=== PATIENT | male | born 1965 | race Caucasian/White ===

== ENCOUNTER 2023-06-16 14:58 | Emergency (ER) | payer OTHER, MEDICAID, SELFPAY ==
[2023-06-16 15:02] VITALS: BP 132/77; PULSE 95; RESP 18; TEMP 35.8; O2SAT 98; BMI 25.8
--- NOTE | 2023-06-16 15:24 | DI.RAD.S_ITS ---
PROCEDURE: XR KNEE LT 1TO2V INDICATIONS: laceration over L knee TECHNIQUE: 2 views of the knee were acquired. COMPARISON: None. FINDINGS: Bones: No fractures or dislocations. No suspicious bony lesions. Soft tissues: No joint effusion. No suspicious soft tissue calcifications. No radiopaque foreign body. IMPRESSION: No visualized acute fracture or dislocation. However, if clinical concern and/or pain persist, short interval imaging followup in 7-10 days is recommended, as occult injury cannot be definitively excluded. Dictated by: Alejandrina Reeves M.D. on 06/16/2023 at 15:48 Approved by: Alejandrina Reeves M.D. on 06/16/2023 at 15:48
[2023-06-16] MEDS: LIDOCAINE 1% (PF) 5 ML INJ (15:51)
--- NOTE | 2023-06-16 16:47 | ED.LOWEXIN ---
HPI - Extremity Injury (Lower) <Italia Clark PA-C - Last Filed: 06/16/23 16:55> General Chief Complaint: Extremity Injury, Lower Stated Complaint: chainsaw hit L knee Time Seen by Provider: 06/16/23 15:14 Source: patient Mode of arrival: Ambulatory History of Present Illness HPI Narrative: 57-year-old male here for laceration to his left knee. He was just about to start using his chain saw and it nicked him in the anterior knee. His tetanus has been updated within the last 5 years. He has no difficulty ambulating. He has no pain in the knee itself, just the laceration. He cleaned it and applied a bandage and the bleeding appears to be well-controlled. Related Data Allergies Allergy/AdvReac Type Severity Reaction Status Date / Time No Known Drug Allergies Allergy Verified 06/16/23 15:02 Review of Systems <DARIAN Chapin Last Filed: 06/16/23 16:55> Review of Systems ROS Unobtainable: All systems reviewed & are unremarkable except as noted in HPI and below Patient History <Italia Clark PA-C - Last Filed: 06/16/23 16:55> Social History Smoking Status: Never smoker Smoking Status: Never smoker alcohol intake frequency: holidays/special occasions only Substance Use Type: does not use Exam <DARIAN Chapin Last Filed: 06/16/23 16:55> Narrative Exam Narrative: GENERAL: Well-developed, well-nourished, appears stated age. In no acute distress HEAD: Atraumatic. Normocephalic. EYES: Pupils equal round and reactive. Extraocular motions intact. No scleral icterus. No injection or drainage. ENT: Nose without bleeding, purulent drainage. Airway patent. NECK: Trachea midline. Non tender RESPIRATORY: Respiratory rate and effort normal EXTREMITIES: No edema or joint tenderness. NEURO: AOx3. SKIN: 5 cm subcutaneous linear laceration to the anterior left knee. No evidence of bony involvement on inspection. No foreign body noted Initial Vital Signs Initial Vital Signs: Vital Signs Temperature 96.5 F L 06/16/23 15:02 Pulse Rate 95 H 06/16/23 15:02 Respiratory Rate 18 06/16/23 15:02 Blood Pressure 132/77 06/16/23 15:02 Pulse Oximetry 98 03/17/24 15:02 Oxygen Delivery Method Room Air 06/16/23 15:02 <Rachna Finch MD - Last Filed: 06/22/23 07:04> Initial Vital Signs Initial Vital Signs: Vital Signs Temperature 96.5 F L 06/16/23 15:02 Pulse Rate 95 H 06/16/23 15:02 Respiratory Rate 18 06/16/23 15:02 Blood Pressure 132/77 06/16/23 15:02 Pulse Oximetry 98 06/16/23 15:02 Oxygen Delivery Method Room Air 06/16/23 15:02 Procedures <Italia Clark PA-C - Last Filed: 06/16/23 16:55> Laceration Repair Laceration 1: Time of procedure: 16:30 Site: lower extremity (Left anterior knee) Size (cm): 5 Description: linear Depth: simple, single layer (Through subcutaneous layer) Local Anesthetic: lidocaine 1% and with epi Amount of anesthesia used (mL): 3 Pre-repair: wound explored, irrigated extensively and deep structures intact Skin layer closed with: nylon Skin layer suture size: 4-0 Number of sutures: 5 Technique: simple, interrupted Course <Italia Clark PA-C - Last Filed: 06/16/23 16:55> Orders Ordered: Discontinued Medications Lidocaine HCl (Lidocaine 1% (Pf) 5 Ml) 5 ml INJ NOW ONE Stop: 06/16/23 15:48 Last Admin: 06/16/23 15:51 Dose: 5 ml Documented By: JUAN Vital Signs Vital signs: Vital Signs - 8 hr 06/16/23 15:02 Temperature 96.5 F L Pulse Rate 95 H Respiratory Rate 18 Blood Pressure 132/77 Pulse Oximetry 98 Oxygen Delivery Method Room Air <Rachna Finch MD - Last Filed: 06/22/23 07:04> Orders Ordered: Discontinued Medications Lidocaine HCl (Lidocaine 1% (Pf) 5 Ml) 5 ml INJ NOW ONE Stop: 06/16/23 15:48 Last Admin: 06/16/23 15:51 Dose: 5 ml Documented By: JUAN Vital Signs Vital signs: Vital Signs - 8 hr 06/16/23 15:02 Temperature 96.5 F L Pulse Rate 95 H Respiratory Rate 18 Blood Pressure 132/77 Pulse Oximetry 98 Oxygen Delivery Method Room Air MDM - Extremity Injury (Lower) <Italia Clark PA-C - Last Filed: 06/16/23 16:55> Imaging Data Extremity x-ray #1: Radiologist's Impression: [address] [address] XRay Report Signed Patient: Abhijit Mcclelland MR#: [id number] : 1965 Acct:[id number] Age/Sex: 57 / M Date of Service: 06/16/23 Loc: ED Accession Number: [id number] Procedure: XR knee LT 1to2V Ordering Provider: Italia Clark P.A-C PROCEDURE: XR KNEE LT 1TO2V INDICATIONS: laceration over L knee TECHNIQUE: 2 views of the knee were acquired. COMPARISON: None. FINDINGS: Bones: No fractures or dislocations. No suspicious bony lesions. Soft tissues: No joint effusion. No suspicious soft tissue calcifications. No radiopaque foreign body. IMPRESSION: No visualized acute fracture or dislocation. However, if clinical concern and/or pain persist, short interval imaging followup in 7-10 days is recommended, as occult injury cannot be definitively excluded. Dictated by: Alejandrina Reeves M.D. on 06/16/2023 at 15:48 Approved by: Alejandrina Reeves M.D. on 06/16/2023 at 15:48 [facility] Narrative Medical decision making narrative: Patient seen for laceration on his anterior left knee. Due to the location over his knee which does not have a lot of subcutaneous fat, an x-ray was performed to ensure the laceration did not affect his patella or other bony structures. the x-ray was negative. The wound otherwise is simple, linear, 5 cm in length and was easily repaired with 5 nylon sutures. Patient tolerated procedure very well Patient given wound care instructions including when to follow up for suture removal. Stable for discharge at this time. Discharge Plan Departure Patient Disposition: Home Clinical Impression: Laceration of lower extremity Qualifiers: Encounter type: initial encounter Laterality: left Qualified Code(s): S81.812A - Laceration without foreign body, left lower leg, initial encounter Instructions: DI for Laceration Repair Activity Restrictions/Additional Instructions: Thank you for choosing us to care for you today. You were seen and treated for a laceration on your left knee. The x-ray showed that the laceration did not affect the bones of your knee. Five stitches were placed in your knee. These will need to be removed in 8-10 days. In the meantime please clean wound with soap and water gently twice daily starting tomorrow morning. Please apply a bandage over the area so your clothing does not rub or pull against the stitches. Due to the location on the front of your knee, please be very cautious when bending your knee and please do not bend your knee fully. Look out for signs of infection including redness, swelling, drainage from the wound, and severe pain. If these occur please return to the emergency department for evaluation. Stand Alone Forms: Patient Portal/API ED Sign-out <Rachna Finch MD - Last Filed: 06/22/23 07:04> Cosign ED Attending Cosrobynature Attestation: I did not see this patient. I was available all times for consultation.
[2023-06-16 16:58] VITALS: BP 118/70; PULSE 77; RESP 14; O2SAT 99
== END 2023-06-16 17:00 | disposition home or self-care (01) ==
PROVIDERS: Emergency Provider Physician Assistant
DX: S81.012A Laceration without foreign body, left knee, initial encounter (principal); W29.3XXA Contact with powered garden and outdoor hand tools and machinery, initial encounter
CPT/HCPCS: 12002; 73560; 99283

== ENCOUNTER 2024-06-17 14:18 | Emergency (ER) | payer OTHER, SELFPAY ==
[2024-06-17 14:27] VITALS: BP 126/68; PULSE 87; RESP 18; TEMP 37.1; O2SAT 99; BMI 25.1
--- NOTE | 2024-06-17 14:33 | DI.RAD.S_ITS ---
PROCEDURE: XR FINGER RT MIN 2V INDICATIONS: cut across top of thumb while working with metal TECHNIQUE: AP hand, 2 views of the 1st finger(s) acquired. COMPARISON: None. FINDINGS: Bones: No fractures or dislocations. No suspicious bony lesions. Soft tissues: No suspicious soft tissue calcifications. IMPRESSION: No acute left thumb fracture or dislocation. No radiopaque foreign body is seen. Dictated by: Edwin Small M.D. on 06/17/2024 at 14:59 Approved by: Edwin Small M.D. on 06/17/2024 at 15:01
[2024-06-17] MEDS: LIDOCAINE 1% 20 ML 6 ML INJ (14:59)
--- NOTE | 2024-06-17 15:09 | ED.WOUNDLAC ---
HPI - Wound/Laceration <Lori Cueto PA-C - Last Filed: 06/17/24 16:57> General Chief Complaint: Wound/Laceration Stated Complaint: Per patient needs stiches right hand Time Seen by Provider: 06/17/24 14:31 Source: patient Mode of arrival: Ambulatory History of Present Illness HPI narrative: Mr. Mcclelland is a pleasant 58-year-old male, right-hand dominant, who presents to the emergency department for right hand laceration that occurred prior to arrival. 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 He has a linear 3 cm laceration overlying the dorsal aspect of the right MCP, no involvement of the nail. Reports that his tetanus shot is up-to-date within the last 5 years. He still has full range of motion of the thumb and bleeding is controlled on exam with a butterfly Band-Aid. He denies any other injuries. He does not take blood thinners. Related Data Allergies Allergy/AdvReac Type Severity Reaction Status Date / Time No Known Drug Allergies Allergy Verified 06/16/23 15:02 Review of Systems <Lori Cueto PA-C - Last Filed: 06/17/24 16:57> Review of Systems ROS Unobtainable: All systems reviewed & are unremarkable except as noted in HPI and below Patient History <Lori Cueto PA-C - Last Filed: 06/17/24 16:57> Social History Smoking Status: Never smoker Smoking Status: Never smoker alcohol intake frequency: holidays/special occasions only Exam <DARIAN Preciado Last Filed: 06/17/24 16:57> Narrative Exam Narrative: GENERAL: 58 year old patient appears stated age. Well-developed patient, in no acute distress. HEAD: Atraumatic. Normocephalic. NECK: Trachea midline. Cervical ROM intact. EXTREMITIES: 3cm linear superficial laceration overlying the dorslal aspect of the 1st MCP. No active bleeding. Full flexion and extension of the MCP and D IP. Brisk capillary refill in the finger and sensation intact to light touch. Strong radial pulses bilaterally. NEURO: AOx3. ?Clear speech. ?Moves all 4 extremities appropriately. SKIN: No rash or erythema of visible areas, laceration on R hand described above. Initial Vital Signs Initial Vital Signs: Vital Signs Temperature 98.8 F 06/17/24 14:27 Pulse Rate 87 06/17/24 14:27 Respiratory Rate 18 06/17/24 14:27 Blood Pressure 126/68 06/17/24 14:27 Pulse Oximetry 99 06/17/24 14:27 Oxygen Delivery Method Room Air 06/17/24 14:27 <Zachary Kumar MD - Last Filed: 06/19/24 19:39> Initial Vital Signs Initial Vital Signs: Vital Signs Temperature 98.8 F 06/17/24 14:27 Pulse Rate 87 06/17/24 14:27 Respiratory Rate 18 06/17/24 14:27 Blood Pressure 126/68 06/17/24 14:27 Pulse Oximetry 99 06/17/24 14:27 Oxygen Delivery Method Room Air 06/17/24 14:27 Procedures <Lori Cueto PA-C - Last Filed: 06/17/24 16:57> Laceration Repair Laceration 1: Time of procedure: 15:45 Site: hand (right thumb dorsal overlying MCP) Size (cm): 3 Description: linear Depth: simple, single layer Local Anesthetic: lidocaine 1% Amount of anesthesia used (mL): 3 Pre-repair: wound explored and irrigated extensively (cleansed with betadine) Skin layer closed with: nylon Skin layer suture size: 5-0 Number of sutures: 6 Technique: simple, interrupted Course <Lori Cueto PA-C - Last Filed: 06/17/24 16:57> Orders Ordered: Discontinued Medications Bacitracin (Bacitracin Oint 0.9 Gm Pckt) 1 applic TOP NOW ONE Stop: 06/17/24 15:54 Last Admin: 06/17/24 16:07 Dose: 1 applic Documented By: FERNANDO Lidocaine HCl (Lidocaine 1% 20 Ml) 6 ml INJ NOW ONE Stop: 06/17/24 14:36 Last Admin: 06/17/24 14:59 Dose: 6 ml Documented By: FERNANDO Vital Signs Vital signs: Vital Signs - 8 hr 06/17/24 14:27 06/17/24 16:07 Temperature 98.8 F Pulse Rate 87 81 Respiratory Rate 18 16 Blood Pressure 126/68 120/67 Pulse Oximetry 99 99 Oxygen Delivery Method Room Air Room Air <Zachary Kumar MD - Last Filed: 06/19/24 19:39> Orders Ordered: Discontinued Medications Bacitracin (Bacitracin Oint 0.9 Gm Pckt) 1 applic TOP NOW ONE Stop: 06/17/24 15:54 Last Admin: 06/17/24 16:07 Dose: 1 applic Documented By: FERNANDO Lidocaine HCl (Lidocaine 1% 20 Ml) 6 ml INJ NOW ONE Stop: 06/17/24 14:36 Last Admin: 06/17/24 14:59 Dose: 6 ml Documented By: FERNANDO Vital Signs Vital signs: Vital Signs - 8 hr 06/17/24 14:27 06/17/24 16:07 Temperature 98.8 F Pulse Rate 87 81 Respiratory Rate 18 16 Blood Pressure 126/68 120/67 Pulse Oximetry 99 99 Oxygen Delivery Method Room Air Room Air MDM - Wound/Laceration <Lori Cueto PA-C - Last Filed: 06/17/24 16:57> Medical Records Attestation: I reviewed the patient's medical records. Imaging Data Right Hnad X-Ray: Radiologist's Impression: PROCEDURE: XR FINGER RT MIN 2V INDICATIONS: cut across top of thumb while working with metal TECHNIQUE: AP hand, 2 views of the 1st finger(s) acquired. COMPARISON: None. FINDINGS: Bones: No fractures or dislocations. No suspicious bony lesions. Soft tissues: No suspicious soft tissue calcifications. IMPRESSION: No acute left thumb fracture or dislocation. No radiopaque foreign body is seen. MDM Narrative Medical decision making narrative: 58-year-old male, right-hand dominant, who presents to the emergency department for right hand laceration that occurred prior to arrival. Differential diagnosis includes but isn't limited to laceration, avulsion, fracture, infection, foreign body, etc. On exam patient is in no acute distress, nontoxic appearing, vital signs within normal limits. A 3 cm linear superficial laceration overlying the dorsal aspect of the right MCP joint. He is right-hand dominant. To do location of the laceration we will proceed with suture repair. X-ray was obtained in triage revealing no acute left thumb fracture or dislocation. No radiopaque foreign body is seen. Patient states last Tdap was within 5 years. Wound was irrigated extensively, cleansed, soaked in diluted Betadine, repaired with 6 simple interrupted sutures. Bacitracin nonadherent dressing was applied. Recommended removal of sutures and 10-14 days. We discussed proper wound care and signs and symptoms of infection. He verbalized understanding of all information, right hand is neurovascularly intact, and is stable for discharge home. Discharge Plan Departure Patient Disposition: Home Clinical Impression: Laceration of right thumb Qualifiers: Encounter type: initial encounter Damage to nail status: without damage Foreign body presence: without foreign body Qualified Code(s): S61.011A - Laceration without foreign body of right thumb without damage to nail, initial encounter Instructions: DI for Laceration Repair Activity Restrictions/Additional Instructions: Today you had a laceration to your right thumb. We have placed 6 sutures. They need to be removed in 10-14 days. You may do this in your doctor's office, the [id number], or here if necessary. Please keep the dressing on your wound clean, dry, and intact for the next 24 hours. After this time, you may remove the dressing and gently clean the wound with soap and water, then pat dry. Keep the wound clean and covered. Avoid soaking the wound in any water such as a bath, pool, or the ocean. If you develop any signs of wound infection such as increased redness, pus drainage, streaking redness, or fevers, please return to the ER immediately for evaluation. Once sutures are removed and the wound has healed, apply sunscreen daily to reduce the appearance of scars. (If you do not have a PCP you can call [phone]. ?to schedule an appointment with an [facility] Primary Care Provider) IF YOU DEVELOP ANY NEW OR WORSENING SYMPTOMS, RETURN TO THE ER! Please read the attached instructions, they highlight more specific treatments and interventions for you at home. Thank you for letting me participate in your care, Lori Cueto PA-C Stand Alone Forms: Patient Portal/API/Survey ED Sign-out <Zachary Kumar MD - Last Filed: 06/19/24 19:39> Cosign ED Attending Cosignature Attestation: I was immediately available in the department for consultation. ?This documentation has been reviewed and I agree with assessment and plan. Supervised by Zachary Kumar MD
[2024-06-17 16:07] VITALS: BP 120/67; PULSE 81; RESP 16; O2SAT 99
[2024-06-17] MEDS: BACITRACIN OINT 0.9 GM PCKT 1 APPLIC TOP (16:07)
== END 2024-06-17 16:09 | disposition home or self-care (01) ==
PROVIDERS: Emergency Provider Physician Assistant
DX: S61.011A Laceration without foreign body of right thumb without damage to nail, initial encounter (principal); W26.9XXA Contact with unspecified sharp object(s), initial encounter
CPT/HCPCS: 12002; 73140; 99283